=== PATIENT | male | born 1970 | race Caucasian/White ===

== ENCOUNTER 2018-01-21 14:43 | Emergency (ER) | payer BC ==
[2018-01-21 15:04] VITALS: BP 142/83
[2018-01-21 15:40] LABS: Basophils # (Auto) 0.1 K/mm3 (0.0-0.1); Basophils % (Auto) 0.5 % (0.0-1.8); Eosinophils # (Auto) 0.1 K/mm3 (0.0-0.4); Eosinophils % (Auto) 0.9 % (0.0-4.3); Hematocrit 41.9 % (35.5-45.6); Hemoglobin 14.2 gm/dl (11.8-15.2); Lymphocytes # (Auto) 2.4 K/mm3 (1.2-5.4); Lymphocytes % (Auto) 15.7 % (13.4-35.0); Mean Corpuscular HGB Conc 34 % (32-34); Mean Corpuscular Hemoglobin 30 pg (28-32); Mean Corpuscular Volume 89 fl (84-94); Monocytes % (Auto) 6.6 % (0.0-7.3); Platelet Count 316 K/mm3 (140-440); Red Blood Count 4.74 M/mm3 (3.65-5.03); Red Cell Distribution Width 12.5 % (13.2-15.2)
[2018-01-21 15:54] LABS: Alanine Aminotransferase 23 units/L (7-56); Albumin 4.4 g/dL (3.9-5); BUN/Creatinine Ratio 16; Blood Urea Nitrogen 13 mg/dL (9-20); Calcium 9.2 mg/dL (8.4-10.2); Hemolysis Index 4; Lipase 26 units/L (13-60)
[2018-01-21 16:41] LABS: Mucus,Urine 3+ /HPF
[2018-01-21 16:43] LABS: Bilirubin,Urine NEG (Negative); Blood,Urine SM (Negative); Color,Urine Yellow (Yellow); Protein,Urine <15 mg/dL mg/dL (Negative); Urobilinogen,Urine < 2.0 mg/dL (<2.0)
--- NOTE | 2018-01-21 19:26 | Emergency Department Report ---
ED Abdominal Pain HPI - General Chief Complaint: Abdominal Pain Stated Complaint: PAIN IN LEFT SIDE Time Seen by Provider: 01/21/18 19:17 Source: patient Mode of arrival: Ambulatory Limitations: No Limitations - History of Present Illness Initial Comments: 47-year-old male comes in complaining of left flank pain for 2 days. Patient admits to chills no fever she reports is worse with movement better with rest denies any shortness of breathing chest pain dysuria no nausea no vomiting. Patient reports has no past medical history has had his appendix removed. He currently takes no medications on a daily basis and has no known drug allergies. MD Complaint: flank pain -: days(s) (2) Location: L flank Radiation: L flank Migration to: no migration Severity scale (0 -10): 8 Quality: aching, sharp Consistency: constant Improves With: rest Worsens With: movement Associated Symptoms: diarrhea, chills - Related Data Previous Rx's Medication Instructions Recorded Last Taken Type Ciprofloxacin HCl [Cipro] 500 mg PO Q12H #14 tablet 01/21/18 Unknown Rx Ibuprofen [Motrin 800 MG tab] 800 mg PO Q8HR PRN #15 tablet 01/21/18 Unknown Rx metroNIDAZOLE [Metronidazole] 500 mg PO Q8H #21 tablet 01/21/18 Unknown Rx Allergies Allergy/AdvReac Type Severity Reaction Status Date / Time No Known Allergies Allergy Unverified 01/21/18 14:58 ED Review of Systems ROS: Stated complaint: PAIN IN LEFT SIDE Other details as noted in HPI Constitutional: chills. denies: fever Eyes: denies: eye pain, eye discharge, vision change ENT: denies: ear pain, throat pain Respiratory: denies: cough, shortness of breath, wheezing Cardiovascular: denies: chest pain, palpitations Endocrine: no symptoms reported Gastrointestinal: abdominal pain, other (left flank pain) Genitourinary: denies: urgency, dysuria Musculoskeletal: denies: back pain, joint swelling, arthralgia Skin: denies: rash, lesions Neurological: denies: headache, weakness, paresthesias Psychiatric: denies: anxiety, depression Hematological/Lymphatic: denies: easy bleeding, easy bruising ED Past Medical Hx - Past Medical History Previous Medical History?: No - Surgical History Past Surgical History?: Yes Hx Appendectomy: Yes - Social History Smoking Status: Never Smoker Substance Use Type: Alcohol - Medications Home Medications: Home Medications Medication Instructions Recorded Confirmed Last Taken Type Ciprofloxacin HCl [Cipro] 500 mg PO Q12H #14 tablet 01/21/18 Unknown Rx Ibuprofen [Motrin 800 MG tab] 800 mg PO Q8HR PRN #15 tablet 01/21/18 Unknown Rx metroNIDAZOLE [Metronidazole] 500 mg PO Q8H #21 tablet 01/21/18 Unknown Rx ED Physical Exam - General Limitations: No Limitations General appearance: alert, in no apparent distress - Head Head exam: Present: atraumatic, normocephalic - Eye Eye exam: Present: normal appearance - ENT ENT exam: Present: mucous membranes moist - Cardiovascular Cardiovascular Exam: Present: regular rate, normal rhythm. Absent: systolic murmur, diastolic murmur, rubs, gallop - GI/Abdominal GI/Abdominal exam: Present: soft, normal bowel sounds - Extremities Exam Extremities exam: Present: normal inspection - Back Exam Back exam: Present: full ROM, CVA tenderness (L) - Neurological Exam Neurological exam: Present: alert, oriented X3 - Psychiatric Psychiatric exam: Present: normal affect, normal mood - Skin Skin exam: Present: warm, dry, intact, normal color. Absent: rash ED Course Vital Signs 01/21/18 14:59 Temperature 98.8 F Pulse Rate 82 Respiratory 18 Rate Blood Pressure 142/83 O2 Sat by Pulse 97 Oximetry - Reevaluation(s) Reevaluation #1: 01/21/18 21:23 Patient reports he feels better since having the Toradol injection. ED Medical Decision Making - Lab Data Result diagrams: 01/21/18 15:23 01/21/18 15:23 - Radiology Data CT of the abdomen and pelvis with contrast. Findings are compatible with acute left colon diverticulitis and fatty infiltrate of the liver. - Medical Decision Making Patient's been evaluated by this provider fast track. Patient's had labs shows a leukocytosis of 15.3, he has hematuria small amount and UA. We will order a CT to rule out kidney stones. Patient has had his appendix out so no concern for that at this time. We will give patient Toradol injection of 30 mg IM. Discussed patient his CT scan came back positive for diverticulitis. I discussed the patient we'll place him on metronidazole every 8 hours for 7 days as well as Cipro twice a day for 7 days as well as instructions on a diverticulitis diet. Also discussed the patient is a follow-up with her primary care provider as he has a small amount of blood in his urine. Patient verbalized understanding. Critical care attestation.: If time is entered above; I have spent that time in minutes in the direct care of this critically ill patient, excluding procedure time. ED Disposition Clinical Impression: Diverticulitis large intestine Qualifiers: Diverticulitis bleeding: unspecified bleeding status Diverticulitis complication: without perforation or abscess Qualified Code(s): K57.32 - Diverticulitis of large intestine without perforation or abscess without bleeding Disposition: DC- TO HOME OR SELFCARE Is pt being admited?: No Does the pt Need Aspirin: No Condition: Stable Instructions: Diverticulitis Diet (ED), Diverticulitis (ED) Additional Instructions: Please take antibiotics as prescribed. Please take pain medication as needed. And please follow up with her primary care provider if symptoms persist or gets worse. Prescriptions: Ciprofloxacin HCl [Cipro] 500 mg PO Q12H #14 tablet Ibuprofen [Motrin 800 MG tab] 800 mg PO Q8HR PRN #15 tablet PRN Reason: Pain metroNIDAZOLE [Metronidazole] 500 mg PO Q8H #21 tablet Referrals: PRIMARY CARE [Primary Care Provider] - 3-5 Days [facility] [Provider Group] - 3-5 Days Forms: Work/School Release Form(ED)
[2018-01-21] MEDS ORDERED: TORADOL IM ONE (19:27)
--- NOTE | 2018-01-26 14:14 | Cat Scan Report ---
FINAL REPORT PROCEDURE: CT ABDOMEN PELVIS WO CON TECHNIQUE: Computerized axial tomography of the abdomen and pelvis was performed without intravenous contrast. This study is performed without intravascular contrast material and its sensitivity for abdominal and pelvic pathology, including neoplasms, inflammation, abscess, free fluid, thrombosis, arterial dissection and infarction, is reduced compared with a contrast enhanced study. HISTORY: left flank pain with hematuria COMPARISON: No prior studies are available for comparison. FINDINGS: Visualized lower thorax: No significant abnormality. Liver: There is diffuse low attenuation of the liver, compatible with fatty infiltration. Spleen: Normal size and attenuation. Gallbladder and biliary system: Normal. Pancreas: Normal. Adrenals: Normal. Kidneys: Normal. GI tract: There is mild inflammation of the left colon, compatible with acute diverticulitis. No extraluminal air or abscess is identified. No bowel obstruction.. Lymph nodes and mesentery: Normal. Vasculature: Normal. Bladder: Normal. Reproductive organs: Normal. Peritoneum: No free fluid or free air. Musculoskeletal structures: Degenerative disc changes at L4-5 and L5-S1. Other: None. IMPRESSION: Findings are compatible with acute left colon diverticulitis. Fatty infiltration of the liver.
== END 2018-01-21 21:08 | disposition home or self-care (01) ==
LOC: ED 14:43
DX: K57.32 Diverticulitis of large intestine without perforation or abscess without bleeding (principal)
CPT/HCPCS: 36415; 74176; 80053; 81001; 83690; 85025; 96372; 99284; J1885